=== PATIENT | female | born 1985 | race Two or more races ===

== ENCOUNTER 2017-04-03 14:25 | Emergency (ER) | payer OTHER ==
--- NOTE | 2017-04-03 15:16 | ER Document Report ---
ED Medical Screen (RME) - General Chief Complaint: Abdominal Pain Stated Complaint: ABDOMINAL PAIN Time Seen by Provider: 04/03/17 15:14 Mode of Arrival: Ambulatory Information source: Patient Notes: 2 day history of epigastric and right upper quadrant pain with nausea and vomiting. Patient reports she vomited 3 times since 10 to eat this morning. Patient initially seen at outpatient facility sent here for further vomiting. She reports a prior history symptoms like this and says no one else at home is sick Physical exam Alert and one nurse female tearful appears uncomfortable Skin warm and dry Chest clear to auscultation bilaterally breath sounds equal Heart regular rate and rhythm Abdomen soft moderate tenderness in epigastric region and right upper quadrant no guarding rebound rigidity no referred pain TRAVEL OUTSIDE OF THE [place] IN LAST 30 DAYS: No - Related Data Allergies/Adverse Reactions: No Known Allergies Allergy (Unverified 04/03/17 14:49) Home Medications: Current Home Medications No Home Medications 04/03/17 [History] Past Medical History Renal/ Medical History: Denies: Hx Peritoneal Dialysis Physical Exam - Vital signs Vitals: Temp Pulse Resp BP Pulse Ox 98.2 F 92 16 113/75 99 04/03/17 14:47 04/03/17 14:47 04/03/17 14:47 04/03/17 14:47 04/03/17 14:47 Course - Vital Signs Vital signs: Temp Pulse Resp BP Pulse Ox 98.2 F 92 16 113/75 99 04/03/17 14:47 04/03/17 14:47 04/03/17 14:47 04/03/17 14:47 04/03/17 14:47
[2017-04-03 15:53] LABS: ABSOLUTE LYMPHOCYTES (AUTO) 1.4 10^3/uL (0.5-4.7); ABSOLUTE MONOCYTES (AUTO) 0.4 10^3/uL (0.1-1.4); ABSOLUTE NEUT (AUTO) 6.5 10^3/uL (1.7-8.2); BASOPHILS % (AUTO) 0.4 % (0-2); EOSINOPHILS % (AUTO) 0.2 % (0-6); HEMATOCRIT 39.5 % (36.0-47.0); HEMOGLOBIN 13.7 g/dL (12.0-15.5); HGB HCT DIFFERENCE 1.6; LYMPHOCYTES % (AUTO) 17.2 % (13-45); MEAN CORPUSCULAR HEMOGLOBIN 32.1 pg (27.0-33.4); MEAN CORPUSCULAR HGB CONC 34.6 g/dL (32.0-36.0); MEAN CORPUSCULAR VOLUME 93 fl (80-97); MONOCYTES % (AUTO) 5.1 % (3-13); RED BLOOD COUNT 4.27 10^6/uL (3.72-5.28); RED CELL DISTRIBUTION WIDTH 12.7 % (11.5-14.0); SEGMENTED NEUTROPHILS % (AUTO) 77.1 % (42-78); WHITE BLOOD COUNT 8.4 10^3/uL (4.0-10.5)
[2017-04-03 15:56] LABS: APPEARANCE,URINE SLIGHTLY-CLOUDY; BILIRUBIN,URINE NEGATIVE (NEGATIVE); GLUCOSE, URINE NEGATIVE (NEGATIVE); KETONES,URINE 80 mg/dL (NEGATIVE); LEUKOCYTE ESTERASE,URINE TRACE (NEGATIVE); NITRITE,URINE NEGATIVE (NEGATIVE); PROTEIN,URINE NEGATIVE (NEGATIVE); URINE SPECIFIC GRAVITY 1.016; UROBILINOGEN,URINE NEGATIVE mg/dL (<2.0)
[2017-04-03 16:15] LABS: ALANINE AMINOTRANSFERASE 24 U/L (9-52); ALBUMIN 4.5 g/dL (3.5-5.0); ALKALINE PHOSPHATASE 80 U/L (38-126); ANION GAP 12 (5-19); ASPARTATE AMINO TRANSFERASE 27 U/L (14-36); BILIRUBIN,DIRECT 0.4 mg/dL (0.0-0.4); BILIRUBIN,TOTAL 0.6 mg/dL (0.2-1.3); BLOOD UREA NITROGEN 11 mg/dL (7-20); CALCIUM 9.8 mg/dL (8.4-10.2); CARBON DIOXIDE 27 mmol/L (22-30); CHLORIDE 102 mmol/L (98-107); CREATININE RESULT 0.71 mg/dL (0.52-1.25); GLUCOSE 87 mg/dL (75-110); POTASSIUM 4.6 mmol/L (3.6-5.0); SODIUM 140.9 mmol/L (137-145)
[2017-04-03] MEDS ORDERED: MORPHINE SULFATE 10 MG/ML INJ IV ONE (17:37)
[2017-04-03] MEDS ORDERED: ONDANSETRON HCL INJ/PF 4 MG/2 ML SDV IV ONE (17:37)
[2017-04-03] MEDS ORDERED: LIDOCAINE 2% VISCOUS SOLN 20 ML UDCUP PO ONE (17:38)
[2017-04-03] MEDS ORDERED: METOCLOPRAMIDE HCL ORAL SOLN 10 MG/10 ML UDCUP PO ONE (17:38)
[2017-04-03] MEDS ORDERED: MAG HYDROX/AL HYDROX/SIMETH SUSP 30 ML UDCUP PO ONE (17:38)
--- NOTE | 2017-04-03 17:52 | ER Document Report ---
ED GI/ - General Chief Complaint: Abdominal Pain Stated Complaint: ABDOMINAL PAIN Time Seen by Provider: 04/03/17 15:14 Mode of Arrival: Ambulatory Information source: Patient Notes: 32-year-old female with the onset 2 days ago of some epigastric "stabbing" nonradiating abdominal pain. She describes it as intermittent, worse when she "pushes it". No relieving symptoms. She states nausea and vomiting without fevers, flank pain, dysuria, or diarrhea. No history of previous abdominal pain. No lower abdominal pain. No dysfunctional vaginal bleeding. TRAVEL OUTSIDE OF THE [place] IN LAST 30 DAYS: No - HPI Patient complains to provider of: Abdominal pain Onset: Other - See above Timing/Duration: Gradual Quality of pain: Achy Severity at maximum: Moderate Severity in ED: Moderate Pain Level: 3 Location: Epigastric Vaginal bleeding (Compared to normal period): None Sexual history: Active Associated symptoms: Other - See above Exacerbated by: Other - See above Relieved by: Denies - Related Data Allergies/Adverse Reactions: No Known Allergies Allergy (Unverified 04/03/17 14:49) Past Medical History - General Information source: Patient - Social History Smoking Status: Never Smoker Chew tobacco use (# tins/day): No Frequency of alcohol use: None Drug Abuse: None Family History: Reviewed & Not Pertinent Patient has suicidal ideation: No Patient has homicidal ideation: No Renal/ Medical History: Denies: Hx Peritoneal Dialysis Surgical Hx: Negative Review of Systems - Review of Systems Constitutional: denies: Fever EENT: denies: Eye discharge, Nose discharge Cardiovascular: denies: Chest pain, Palpitations, Dyspnea Respiratory: denies: Short of breath Gastrointestinal: Vomiting. denies: Diarrhea, Nausea Genitourinary: denies: Dysuria Musculoskeletal: denies: Leg swelling Skin: Other - no hives. denies: Rash Neurological/Psychological: Other - no slurred speech -: Yes All other systems reviewed and negative Physical Exam - Vital signs Vitals: Temp Pulse Resp BP Pulse Ox 98.2 F 92 16 113/75 99 04/03/17 14:47 04/03/17 14:47 04/03/17 14:47 04/03/17 14:47 04/03/17 14:47 Interpretation: Normal Notes: Reviewed vital signs and nursing note as charted by RN. CONSTITUTIONAL: Alert and oriented and responds appropriately to questions. Well -appearing; well-nourished HEAD: Normocephalic; atraumatic EYES: Sclerae non-icteric CARD: Regular rate and rhythm; no murmurs, no clicks, no rubs, no gallops; symmetric distal pulses RESP: Normal chest excursion without splinting or tachypnea; breath sounds clear and equal bilaterally; no wheezes, no rhonchi, no rales ABD/GI: Normal bowel sounds; non-distended; soft, mildly tender to palpation of the epigastric and upper abdominal quadrants. Patient has no lower abdominal tenderness to deep palpation. BACK: The back appears normal and is non-tender to palpation, there is no CVA tenderness EXT: Normal ROM in all joints; non-tender to palpation; no cyanosis, no effusions, no edema SKIN: Normal color for age and race; warm; dry; good turgor; capillary refill < 2 seconds; no acute lesions noted NEURO: Moves all extremities equally; Motor and sensory function intact PSYCH: The patient's mood and manner are appropriate. Grooming and personal hygiene are appropriate. Course - Re-evaluation Re-evalutation: 04/03/17 17:51 We'll obtain basic labs, liver panel, lipase, urinalysis, test, three- way x-ray of the abdomen, and an ultrasound of the right upper quadrant. We would like to evaluate for perforated gastric ulcer, biliary or gallbladder dysfunction, pancreatitis, or other obvious intra-abdominal processes. Patient is young and denies any chest pain or shortness of breath. EKG shows a heart rate of 76, normal sinus rhythm, normal axis, no obvious ST elevation or depression. 04/03/17 18:43 Labs as recorded. Urine culture has been sent. Patient has no lower abdominal pain or urinary tract symptoms. I do not believe the patient requires treatment at this time and patient does have a high amount of ketones. 2 L of fluid infusing. Normal liver panel, lipase, and white blood cell count. Three-way x-ray of the abdomen shows no obvious signs of bowel obstruction. No air under the diaphragm. 04/03/17 19:06 Ultrasound as recorded. The patient states her pain is greatly reduced. On repeat examination the patient still has no lower abdominal tenderness to deep palpation of both lower abdominal quadrants. Given that this pain started around 2 days ago, I believe acute appendicitis his migration to the lower abdomen would've already occurred. Patient has no white count elevation and the patient is in no acute distress. Patient does have a primary care physician. I will provide strict return precautions, Prilosec, pain meds, nausea meds, with strict return precautions. - Vital Signs Vital signs: Temp Pulse Resp BP Pulse Ox 98.2 F 92 16 113/75 99 04/03/17 14:47 04/03/17 14:47 04/03/17 14:47 04/03/17 14:47 04/03/17 14:47 - Laboratory Result Diagrams: 04/03/17 15:20 04/03/17 15:20 Laboratory results interpreted by me: 04/03/17 15:20 Urine Ketones 80 H Ur Leukocyte Esterase TRACE H Discharge - Discharge Clinical Impression: Epigastric abdominal pain Condition: Good Disposition: HOME, SELF-CARE Additional Instructions: Come back immediately with any increased pain, change in location or quality of pain, lower abdominal pain, fevers, vomiting, or any other acute problems. Please follow-up with your primary care physician, possibly a sole molder , and the urine culture result that is pending. I provided a sole molder for you. Prescriptions: Hydrocodone/Acetaminophen [[place] 5-325 Tablet] 1 each PO Q6 PRN #12 tablet PRN Reason: For Pain Omeprazole Magnesium [Prilosec Otc] 20 mg PO DAILY #30 tablet. Ondansetron HCl [Zofran 4 mg Tablet] 1 - 2 tab PO Q4H PRN #10 tablet PRN Reason: Referrals: YUSEF RIVAS MD [ACTIVE STAFF] - Follow up as needed
[2017-04-03] MEDS ORDERED: NORMAL SALINE 1000 ML 1,000 ML IV ONE ×2 (18:42)
[2017-04-03 20:29] VITALS: BP 96/69
--- NOTE | 2017-04-03 23:36 | EKG REPORT ---
SEVERITY:- NORMAL ECG - SINUS RHYTHM : Confirmed by: Bruno Muñoz 03-Apr-2017 23:34:49
== END 2017-04-03 20:29 | disposition home or self-care (01) ==
LOC: ER 14:25
DX: R10.13 Epigastric pain (principal); R11.2 Nausea with vomiting, unspecified
CPT/HCPCS: 93005; 99284; 96374; 96375; 36415; 87086; 83690; 84703; 85025; 80053; 81001; 74022; 76705; 93010; J3490; J2270; J2405; J7030